=== PATIENT | male | born 1970 | race Caucasian/White ===

== ENCOUNTER 2024-07-19 15:40 | Inpatient (IN) ==
[2024-07-19 16:07] LABS: Basophils # (auto) 0.05 K/uL (0.00-0.20); Basophils % (auto) 0.7 %; Eosinophils # (auto) 0.13 K/uL (0.00-0.50); Eosinophils % (auto) 1.7 %; Hematocrit (blood only) 46.1 % (42.0-52.0); Hemoglobin 15.5 g/dl (14.0-18.0); Immature Granulocytes # (auto) 0.03 K/uL (0.01-0.20); Immature Granulocytes % (auto) 0.4 %; Lymphocytes # (auto) 1.51 K/uL (1.20-3.40); Lymphocytes % (auto) 20.2 %; Mean Corpuscular Hemoglobin 29.4 pg (25.0-34.0); Mean Corpuscular Hgb Conc 33.6 g/dL (32.0-36.0); Mean Corpuscular Volume 87.5 fL (80.0-100.0); Mean Platelet Volume 9.4 fL (9.4-12.4); Monocytes # (auto) 0.71 K/uL (0.11-0.59); Monocytes % (auto) 9.5 %; Neutrophils # (auto) 5.05 K/uL (1.40-6.50); Neutrophils % (auto) 67.5 %; Platelet Count 263 K/uL (130-400); RDW Coefficient of Variation 13.6 % (11.5-14.5); RDW Standard Deviation 42.9 fL (36.4-46.3); Red Blood Count 5.27 M/uL (4.70-6.10); White Blood Count 7.48 K/ul (4.8-10.8)
[2024-07-19] MEDS: dilTIAZem HCl 5 MG/ML 5 ML VIAL IV STA (16:07)
[2024-07-19 16:23] LABS: Albumin Globulin Ratio 1.5 (0.9-2); Albumin Level 4.5 gm/dl (3.4-5.0); BUN Creatinine Ratio 9.5 (10-20); Bilirubin,Total 0.8 mg/dl (0.2-1.0); Calcium 9.5 mg/dl (8.6-10.3); Creatinine Clr Calc Pharmacy 102.1 ml/min; Globulin 3.1 gm/dl (2.5-4.0); Potassium 4.2 mmol/L (3.5-5.1); Total Protein 7.6 gm/dl (6.0-8.3)
--- NOTE | 2024-07-19 16:33 | Emergency Department Note ---
Impression & Plan Atrial flutter by electrocardiogram ED Provider Note NAME: RANDEE BAEZ AGE: 53 SEX: M : 1970 ARRIVES VIA: Ambulance INFORMANT: Patient, ED PROVIDER(S): Vu Corona MD CHIEF COMPLAINT: Fluttering in chest HPI: This is a 53-year-old male presenting for fluttering in chest. Patient notes that over the past 5 days he has had intermittent symptoms of fluttering in his chest. He states he is only with exertion specifically walking around or doing activity. He notes that he did not feel his tachycardia at rest. No chest pain or shortness of breath. No fevers or chills. He does have exertional dyspnea however. No leg swelling. No pleurisy. ROS: See above HPI for pertinent positives & negatives. A total of 10 systems reviewed and were otherwise negative. PAST MEDICAL HISTORY: See Below PAST SURGICAL HISTORY: See Below FAMILY HISTORY: See Below SOCIAL HISTORY: See Below HOME MEDICATIONS: See Below ALLERGIES: See Below VITALS: See Below PHYSICAL EXAMINATION: General: resting comfortably in no acute distress Head: Normocephalic and atraumatic Eyes: Normal inspection, extraocular muscles intact Ear, nose, throat: Normal external exam Neck: Normal range of motion Respiratory: lungs clear to auscultation bilaterally Cardiovascular: Tachycardic regular rate/rhythm, no murmur GI: soft, nontender, no guarding or rebound Extremities: nontender, moves all extremities Neuro: The patient awake and alert, appropriately conversive, no focal deficits, symmetric faces Skin: Warm, dry, and intact MEDICAL DECISION MAKING: This is a 53-year-old male present for fluttering in chest. Patient is tachycardic to about 142 at this time. EKG as below shows atrial flutter. Patient does not know when this exactly started, thinks it is Wednesday morning. This is intermittent and he cannot feel his tachycardia at this time. -[id number] was 1 currently -Will try diltiazem 10 mg IV for rate control -Unsuccessful with IV push. Will do bolus - bloodwork is reviewed showing no significant leukocytosis, anemia, electrolyte or creatinine abnormality -Patient still in current atrial flutter. Will admit for further rate control, patient is symptomatic with exertion Differential diagnosis: Atrial fibrillation, atrial flutter, SVT Independent History obtained from: [facility] interpreted by me: ECG: ECG independently interpreted by me with atrial flutter, 2-1 AV conduction, rate of 142 normal QRS, normal QTc, no ST segment elevations consistent with STEMI criteria Cardiac Monitoring: An order was placed for continuous cardiac monitoring. The monitor shows a rate of 145 with atrial flutter rhythm. Critical Care Note: I have personally spent 35 minutes of critical care time in the direct management of this patient. This includes bedside care, interpretation of diagnostic studies, and testing, discussion with consultants, patient, and family members, and other required patient management activities. This 35 minutes is in excess of all separately billable procedures. Past Med/Surg History Problem List (Updated 07/19/24 @ 22:17 by Vu Corona MD) Atrial flutter by electrocardiogram (Acute) Morbid obesity Atrial flutter with rapid ventricular response ALFRED (generalized anxiety disorder) Hyperlipidemia Spinal stenosis of cervical region Hx of heart artery stent Encounter for pre-operative examination Colon cancer screening Abnormal CT of the abdomen Spondylosis PTSD (post-traumatic stress disorder) Polyneuropathy Anxiety Medical History (Updated 07/19/24 @ 22:17 by Vu Corona MD) Wears hearing aid in both ears Tinnitus of both ears Hypertension Vertigo carotid ultrasound scheduled 06/04/21 [facility] 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 Surgery should give 35% more lung capactiy, was a result of cancer dx 2020 to have surgery 01/05/[address] Evans pulmonary [place] in [place], [place] Sleep apnea cpap Surgical History (Updated 12/12/21 @ 09:06 by Emeka Mitchell MD) History of colonoscopy 06/11/21 [facility] History of arthroscopy R ankle H/O removal of testicle Right History of cardiac cath 2020, 2 [facility] [place] [place]; Social History Smoking Status: Never smoker Do You Dip or Chew Tobacco: No; Hx Alcohol Use: Yes Hx Substance Use: Yes Last Used Substance Other:: medical marijuana- drops as directed Preferred Language: Kiswahili Communication Ability: Effective Oiler Helper Required: No Beliefs That Will Affect Care: None Current Living Situation: Family Feels Safe at Home: Yes Assistive Devices: Hearing Aid - Bilateral Allergies Allergies Allergy/AdvReac Type Severity Reaction Status Date / Time No Known Allergies Allergy Verified 12/12/21 11:15 Home Meds Home Medications Medication Instructions Recorded Confirmed cetirizine 10 mg tablet (Zyrtec) 10 mg PO DAILY 06/04/21 07/19/24 aspirin 81 mg tablet,delayed 81 mg PO QAM 11/04/21 07/19/24 release (Adult Low Dose Aspirin) atorvastatin 20 mg tablet 20 mg PO DAILY 07/19/24 07/19/24 bupropion HCl 300 mg 24 hr tablet, 300 mg PO DAILY 07/19/24 07/19/24 extended release doxycycline hyclate 100 mg tablet 100 mg PO BID 07/19/24 07/19/24 fluoxetine 40 mg capsule 40 mg PO DAILY 07/19/24 07/19/24 gabapentin 300 mg capsule See Rx Instructions .Route .COMPLEX 07/19/24 07/19/24 hydrochlorothiazide 12.5 mg tablet 12.5 mg PO DAILY 07/19/24 07/19/24 lisinopril 20 mg tablet 20 mg PO DAILY 07/19/24 07/19/24 povidone-iodine 10 % topical 1 applic topical DAILY Wound care 07/19/24 07/19/24 solution Previous Rx's Medication Instructions Recorded pantoprazole 40 mg tablet,delayed 40 mg PO DAILY #30 tabs 12/12/21 release Results & Data (ED) Vital Signs Vital Signs - 24 hr 07/19/24 15:49 07/19/24 15:51 07/19/24 15:54 Temperature 36.7 C Temperature Source Oral Pulse Rate 150 H 142 H 142 H Pulse Rate from SpO2 Sensor 141 H Respiratory Rate 18 20 Blood Pressure 110/85 Blood Pressure Mean 93 Pulse Oximetry 98 98 Sepsis Recent Fever Within 48 Hours No Sepsis New/Unexplained Change in Mental Status No Sepsis Action Taken by Nursing No Action Required 07/19/24 16:24 07/19/24 16:28 07/19/24 16:30 Temperature Temperature Source Pulse Rate 143 H 144 H Pulse Rate from SpO2 Sensor 144 H 143 H Respiratory Rate 17 18 Blood Pressure 107/80 Blood Pressure Mean 93 Pulse Oximetry 93 97 Sepsis Recent Fever Within 48 Hours Sepsis New/Unexplained Change in Mental Status Sepsis Action Taken by Nursing 07/19/24 17:06 07/19/24 17:24 07/19/24 17:42 Temperature Temperature Source Pulse Rate 145 H 143 H 144 H Pulse Rate from SpO2 Sensor 145 H 144 H 145 H Respiratory Rate 18 32 H 20 Blood Pressure 102/83 Blood Pressure Mean 89 Pulse Oximetry 97 98 98 Sepsis Recent Fever Within 48 Hours Sepsis New/Unexplained Change in Mental Status Sepsis Action Taken by Nursing 07/19/24 17:48 07/19/24 18:00 07/19/24 18:09 Temperature Temperature Source Pulse Rate 143 H 145 H Pulse Rate from SpO2 Sensor 144 H 143 H Respiratory Rate 20 20 Blood Pressure 107/85 Blood Pressure Mean 92 Pulse Oximetry 100 100 Sepsis Recent Fever Within 48 Hours Sepsis New/Unexplained Change in Mental Status Sepsis Action Taken by Nursing 07/19/24 18:21 07/19/24 18:31 07/19/24 18:31 Temperature Temperature Source Pulse Rate 144 H Pulse Rate from SpO2 Sensor 144 H Respiratory Rate 18 Blood Pressure 121/84 121/84 Blood Pressure Mean 104 104 Pulse Oximetry 98 Sepsis Recent Fever Within 48 Hours Sepsis New/Unexplained Change in Mental Status Sepsis Action Taken by Nursing 07/19/24 18:39 07/19/24 18:41 Temperature Temperature Source Pulse Rate 140 H 141 H Pulse Rate from SpO2 Sensor 140 H Respiratory Rate 22 Blood Pressure Blood Pressure Mean Pulse Oximetry 97 Sepsis Recent Fever Within 48 Hours Sepsis New/Unexplained Change in Mental Status Sepsis Action Taken by Nursing Laboratory Data 07/19/24 15:51 07/19/24 15:51 Lab Results 07/19/24 Range/Units 15:51 WBC 7.48 (4.8-10.8) K/ul RBC 5.27 (4.70-6.10) M/uL Hgb 15.5 (14.0-18.0) g/dl Hct 46.1 (42.0-52.0) % MCV 87.5 (80.0-100.0) fL MCH 29.4 (25.0-34.0) pg MCHC 33.6 (32.0-36.0) g/dL RDW Std Deviation 42.9 (36.4-46.3) fL RDW Coeff of Carmenza 13.6 (11.5-14.5) % Plt Count 263 (130-400) K/uL MPV 9.4 (9.4-12.4) fL Immature Gran % (Auto) 0.4 % Neut % (Auto) 67.5 % Lymph % (Auto) 20.2 % [place] % (Auto) 9.5 % Eos % (Auto) 1.7 % Baso % (Auto) 0.7 % Neut # (Auto) 5.05 (1.40-6.50) K/uL Lymph # (Auto) 1.51 (1.20-3.40) K/uL [place] # (Auto) 0.71 H (0.11-0.59) K/uL Eos # (Auto) 0.13 (0.00-0.50) K/uL Baso # (Auto) 0.05 (0.00-0.20) K/uL Immature Gran # (Auto) 0.03 (0.01-0.20) K/uL Sodium 137 (136-145) mmol/L Potassium 4.2 (3.5-5.1) mmol/L Chloride 99 (98-107) mmol/L Carbon Dioxide 29 (21-32) mmol/L Anion Gap 9 (3-11) BUN 12 (6-23) mg/dl Creatinine 1.26 (0.6-1.4) mg/dl Est Cr Clr Drug Dosing 102.1 ml/min eGFR 69.05 BUN/Creatinine Ratio 9.5 L (10-20) Glucose 99 (70-99(Fasting)) mg/dl Calcium 9.5 (8.6-10.3) mg/dl Magnesium 2.0 (1.7-2.4) mg/dl Total Bilirubin 0.8 (0.2-1.0) mg/dl AST 24 (13-39) U/L ALT 27 (7-52) U/L Alkaline Phosphatase 83 (34-104) U/L Troponin I High Sens 3.4 (0-20) pg/ml Total Protein 7.6 (6.0-8.3) gm/dl Albumin 4.5 (3.4-5.0) gm/dl Globulin 3.1 (2.5-4.0) gm/dl Albumin/Globulin Ratio 1.5 (0.9-2) TSH 2.355 (0.300-4.500) uIu/ml Lyme Disease Screen Negative (Negative) Administered Medications Diltiazem HCl 125 mg/ Dextrose 125 mls @ 7.5 mls/hr IV .[id number] MERLINE; Protocol Stop: 08/18/24 16:29 Last Titration: 07/19/24 21:12 Dose: 0 mg/hr, 0 mls/hr Documented By: CHAN Co-signed By: LILIAN Titration: 07/19/24 17:25 Dose: 7.5 mg/hr, 7.5 mls/hr Documented By: LINH Co-signed By: CEF Admin: 07/19/24 16:47 Dose: 5 mg/hr, 5 mls/hr Documented By: KEAGAN Co-signed By: CEF Discontinued Medications Diltiazem HCl (Diltiazem Hcl 5 Mg/Ml 5 Ml Vial) 10 mg IV NOW STA Stop: 07/19/24 16:01 Last Admin: 07/19/24 16:07 Dose: 10 mg Documented By: KEAGAN Co-signed By: LILIAN Sodium Chloride (Nss) 500 mls @ 999 mls/hr IV .Q31M ONE Stop: 07/19/24 19:05 Last Infusion: 07/19/24 19:28 Dose: Infused Documented By: Admin: 07/19/24 18:43 Dose: 999 mls/hr Documented By: LINH Magnesium Sulfate/Dextrose (Magnesium Sulfate / D5w) 1 gm in 100 mls @ 100 mls/hr IV NOW STA Stop: 07/19/24 19:36 Last Infusion: 07/19/24 20:17 Dose: Infused Documented By: Admin: 07/19/24 19:16 Dose: 100 mls/hr Documented By: CHAN Metoprolol Tartrate (Metoprolol Tartrate 1 Mg/Ml Vial) Confirm Administered Dose 5 mg IV .STK-MED ONE Stop: 07/19/24 18:27 Last Admin: 07/19/24 18:41 Dose: Not Given Documented By: LINH Metoprolol Tartrate (Metoprolol Tartrate 1 Mg/Ml Vial) 5 mg IV NOW STA Stop: 07/19/24 18:36 Last Admin: 07/19/24 18:41 Dose: 5 mg Documented By: LINH Imaging Data Radiologist's Impression: Chest X-Ray 07/19/24 18:07 Clinical History: Heart palpitations Technique: A frontal view of the chest was obtained Findings: There is left lower lobe atelectasis. There is also linear atelectasis in the left midlung. The heart size is at the upper limit of normal. No right pleural effusion or pneumothorax is seen. There is a small to moderate sized left pleural effusion No fracture is noted. No foreign body is seen there is a stent in the upper SVC Impression: 1. Left lower lobe opacity, likely due to atelectasis 2. Left pleural effusion Electronically signed by Lobo Guardado 07-19-2024 6:29 PM Discharge Plan Visit Data Chief Complaint: Tachycardia Stated Complaint: Tachycardia/Aflutter HR 140s ED Provider: Vu Corona Discharge Problem: Atrial flutter by electrocardiogram Patient Disposition: Admitted As Inpatient Discharge Instructions Interventions: ED Discharge Assessment Last Done: 07/19/24 20:37
[2024-07-19 16:38] LABS: Thyroid Stimulating Hormone 2.355 uIu/ml (0.300-4.500)
[2024-07-19] MEDS: dilTIAZem HCL 125 MG in DEXTROSE 5% 100 ML IV SCH (16:47)
[2024-07-19] MEDS: METOPROLOL TARTRATE 1 MG/ML VIAL IV ONE (18:26)
--- NOTE | 2024-07-19 18:30 | XRay Report ---
Clinical History: Heart palpitations Technique: A frontal view of the chest was obtained Findings: There is left lower lobe atelectasis. There is also linear atelectasis in the left midlung. The heart size is at the upper limit of normal. No right pleural effusion or pneumothorax is seen. There is a small to moderate sized left pleural effusion No fracture is noted. No foreign body is seen there is a stent in the upper SVC Impression: 1. Left lower lobe opacity, likely due to atelectasis 2. Left pleural effusion Electronically signed by Lobo Guardado 07-19-2024 6:29 PM
[2024-07-19] MEDS: METOPROLOL TARTRATE 1 MG/ML VIAL IV STA (18:41)
[2024-07-19 18:43] LABS: Troponin I High Sensitivity 3.4 pg/ml (0-20)
[2024-07-19] MEDS: SODIUM CHLORIDE 0.9% 500 ML IV ONE (18:43)
--- NOTE | 2024-07-19 19:01 | History & Physical Report ---
Date of Service July 19, 2024 Assessment & Plan (1) Atrial flutter with rapid ventricular response: (2) Sleep apnea: (3) PTSD (post-traumatic stress disorder): (4) ALFRED (generalized anxiety disorder): (5) Hyperlipidemia: (6) Morbid obesity: (7) Hypertension: (8) Testicle cancer: Plan Patient 53-year-old gentleman presents emergency room with new onset atrial flutter with rapid ventricular response. Patient high risk for further arrhythmias and decompensation. He requires hospital level care, monitoring, specialty consultation and IV medications and laboratory monitoring. Admit to a monitored setting Patient given stat dose of IV Lopressor in the ED. Did seem to respond to this a little bit better than the diltiazem Continue diltiazem drip IV Lopressor and oral Lopressor to be started Patient does not appear volume overloaded, his blood pressure was a little bit on the soft side initially. Give a one-time 500 cc bolus of saline, this may also help with his rates if there is any volume depletion contributing to his atrial flutter Therapeutic dose Lovenox for anticoagulation in the setting of atrial flutter Echocardiogram Cardiology consultation for new onset atrial flutter and consider possible cardioversion N.p.o. after midnight Home medications as prescribed Home CPAP Give 1 g of mag sulfate may help with rate control and rhythm at bedside updated plan of care Discussed advanced directives, patient request full code History of Present Illness Chief Complaint: Racing heart shortness of breath and chest tightness Primary Care Provider: [facility] Patient is a 53-year-old gentleman with no previous history of arrhythmia. Patient does have previous history of heart disease. Presents to the emergency room with a 4 to 5-day history of some dyspnea with exertion and feeling as though his heart is racing. In the emergency room EKG is consistent with atrial flutter with rapid ventricular response. He was started on IV diltiazem and referred to our service for further evaluation. Time my evaluation patient is on diltiazem drip 7.5 mg/h. His heart rate is still 140. Patient is resting comfortably on the ER stretcher. His is at the bedside. He confirms that he noticed symptoms either Wednesday or Wednesday. He underwent a significant psychological traumatic event over the weekend and he thought it was a lot of stress and anxiety associated with that. Through the beginning of the week he noticed that he was really short of breath with any activity and his heart would race with any activity but seem to improve with rest. He thought maybe was extreme cold weather that was causing his symptoms. Finally came to the emergency room today when he just was not improving and at the urging of his . He denies any fever or chills, no cough or cold symptoms, some chest tightness but no real chest pain or pressure. No nausea or vomiting. No real changes in his bowel or bladder habits. Little bit decreased appetite but states he has been trying to stay hydrated. He does report he drinks may be 8 beers a day 4 to 5 days a week. May have been drinking little bit more since this event over the weekend. He has never had any issues with withdrawal. Recently he just stopped any beer intake for about a week without any symptoms. He states he only drinks light beer no alcohol. States his mom has atrial fibrillation/atrial flutter and has been cardioverted in the past. He personally has a history of metastatic testicular cancer that had been around his heart causing his previous heart issues. Never had any arrhythmias associated with treatment with his chemotherapy. He reports that due to his exposure in the he has approximately 60% lung function per pulmonary function testing and has chronically elevated diaphragm. He has not noticed any swelling in his hands arms legs or feet. Allergies Allergy/AdvReac Type Severity Reaction Status Date / Time No Known Allergies Allergy Verified 12/12/21 11:15 Home Medications Medication Instructions Recorded Confirmed Type cetirizine 10 mg tablet (Zyrtec) 10 mg PO DAILY 06/04/21 07/19/24 History aspirin 81 mg tablet,delayed 81 mg PO QAM 11/04/21 07/19/24 History release (Adult Low Dose Aspirin) pantoprazole 40 mg tablet,delayed 40 mg PO DAILY #30 tabs 12/12/21 07/19/24 Rx release atorvastatin 20 mg tablet 20 mg PO DAILY 07/19/24 07/19/24 History bupropion HCl 300 mg 24 hr tablet, 300 mg PO DAILY 07/19/24 07/19/24 History extended release doxycycline hyclate 100 mg tablet 100 mg PO BID 07/19/24 07/19/24 History fluoxetine 40 mg capsule 40 mg PO DAILY 07/19/24 07/19/24 History gabapentin 300 mg capsule See Rx Instructions .Route .COMPLEX 07/19/24 07/19/24 History hydrochlorothiazide 12.5 mg tablet 12.5 mg PO DAILY 07/19/24 07/19/24 History lisinopril 20 mg tablet 20 mg PO DAILY 07/19/24 07/19/24 History povidone-iodine 10 % topical 1 applic topical DAILY Wound care 07/19/24 07/19/24 History solution Past Med/Surg History Problem List (Updated 07/19/24 @ 18:58 by Juliano Trevino DO) Morbid obesity Atrial flutter with rapid ventricular response ALFRED (generalized anxiety disorder) Hyperlipidemia Spinal stenosis of cervical region Hx of heart artery stent Encounter for pre-operative examination Colon cancer screening Abnormal CT of the abdomen Spondylosis PTSD (post-traumatic stress disorder) Polyneuropathy Anxiety Medical History (Updated 07/19/24 @ 18:58 by Juliano Trevino DO) Wears hearing aid in both ears Tinnitus of both ears Hypertension Vertigo carotid ultrasound scheduled 06/04/21 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 Surgery should give 35% more lung capactiy, was a result of cancer dx 2020 to have surgery 01/05/[address] Evans pulmonary [place] in [place], [place] Sleep apnea cpap Surgical History (Updated 12/12/21 @ 09:06 by Emeka Mitchell MD) History of colonoscopy 06/11/21 [facility] History of arthroscopy R ankle H/O removal of testicle Right History of cardiac cath 2020, 2 [place] [place]; Social History Smoking Status: Never smoker Do You Dip or Chew Tobacco: No; Hx Alcohol Use: Yes Hx Substance Use: Yes Last Used Substance Other:: medical marijuana- drops as directed Preferred Language: Belarusian Communication Ability: Effective Heel Buffer Required: No Beliefs That Will Affect Care: None Current Living Situation: Family Feels Safe at Home: Yes Assistive Devices: Hearing Aid - Bilateral Review of Systems Review of Systems: Pertinent positive and negative review of systems as mentioned in the HPI Physical Exam Physical Exam: Constitutional: Alert, nontoxic, obese HEENT: Mucous membranes moist. Sclera clear Neck: Soft, no adenopathy Lungs: Decreased breath sounds, no wheezes, dull left base CV: S1-S2, regular, tachycardic, no murmur Abdomen: Soft, nontender, nondistended Extremities: No significant edema Musculoskeletal: No significant joint tenderness Neuro: No focal deficits Psych: Cooperative, normal mood Results & Data Results & Data Vital Signs (Past 12 Hours) Vital Signs Temp Pulse Resp BP Pulse Ox 07/19/24 18:41 141 H 07/19/24 18:31 121/84 07/19/24 18:21 144 H 18 98 07/19/24 18:09 145 H 20 100 07/19/24 18:00 107/85 07/19/24 17:48 143 H 20 100 07/19/24 17:42 144 H 20 98 07/19/24 17:24 143 H 32 H 98 07/19/24 17:06 145 H 18 102/83 97 07/19/24 16:30 144 H 18 97 07/19/24 16:28 107/80 07/19/24 16:24 143 H 17 93 07/19/24 15:54 142 H 20 98 07/19/24 15:51 142 H 07/19/24 15:49 36.7 C 150 H 18 110/85 98 Diagnostic Findings Reviewed imaging, laboratory and diagnostic studies. Pertinent findings as below. Personally reviewed EKG atrial flutter with RVR Personally reviewed chest x-ray: Cardiomegaly, questionable effusion left, no significant pulmonary edema or consolidation TSH 2.3 Electrolytes within normal range Creatinine 1.26 CBC within normal range Magnesium 2.0 Troponin 3.4 Code Status & VTE Plan VTE Prophylaxis Plan VTE Prophylaxis will be ordered: No Reason for no VTE drug order: Contraindicated
[2024-07-19] MEDS: MAGNESIUM SULFATE / D5W 1 GM/100 ML BAG IV STA (19:16)
[2024-07-19] MEDS ORDERED: ENOXAPARIN 1 MG/KG SC SCH (20:37)
[2024-07-19] MEDS ORDERED: ONDANSETRON INJ 2 MG/ML 2 ML VIAL IV PRN (20:37)
[2024-07-19] MEDS ORDERED: LORazepam 2 MG/1 ML VIAL IV PRN (20:37)
[2024-07-19] MEDS ORDERED: LORazepam 1 MG TAB PO PRN (20:37)
[2024-07-19] MEDS ORDERED: ALUMINUM/MAGNESIUM SUSP 30 ML UDC PO PRN (20:37)
[2024-07-19] MEDS ORDERED: ACETAMINOPHEN 325 MG TAB PO PRN (20:37)
[2024-07-19] MEDS ORDERED: POLYETHYLENE (MIRALAX) 17 GM PACK PO PRN (20:37)
[2024-07-19] MEDS: SODIUM CHLORIDE 0.9% 1,000 ML IV ONE (22:17)
[2024-07-19] MEDS: DIGOXIN 250 MCG in SYRINGE 9 ML IV STA (22:35)
[2024-07-19] MEDS: ENOXAPARIN 150 MG/ML SYR SQ SCH (22:40)
[2024-07-19] MEDS: FOLIC ACID 1 MG TAB PO SCH (22:43)
[2024-07-19] MEDS: METOPROLOL TARTRATE 25 MG TAB PO SCH (22:43)
[2024-07-19] MEDS: THIAMINE HCL 100 MG TAB PO SCH (22:43)
--- OUTSIDE RECORDS SUMMARY | 2024-07-19 23:06 | External Medical Summary | Summary of Care ---
Author Name Unknown Organization [facility] Address [address] [place] [address] Phone [phone] Care Team Providers Care Glory Hole Tender Name Role Phone Unavailable Primary Care Provider Unavailabl e Reason for Referral * Precert (Diagnostic Medical) (Within 10 days (routine)) - Pending Review Specialty Diagnoses / Procedures Referred By Contac t Referred To Contact Cardiac Studies Diagnoses Thoracic aortic ectasia (HCC) Procedures ECHO, COMPLETE (2D), TRANS-THORACIC Lisa Valles PA-C [address] [place] [address] Referral ID Status Reason Start Date Expiration Date Visits Requested Visits Authorized [id number] Pending Review Precert 04/21/2024 [id number] Reason for Visit * Precert (Within 30 days (routine)) - Authorized Specialty Diagnoses / Procedures Referred By Contac t Referred To Contact Cardiology Diagnoses Thoracic aortic ectasia (HCC) Procedures MD ECHO TTHRC R-T 2D W/WOM-MODE COMPL SPEC&COLR D Lisa Valles PA-C [address] [place] [address] Referral ID Status Reason Start Date Expiration Date V isits Requested Visits Authorized [id number] Authorized Precert 04/05/2024 05/28/2024 [id number] Encounter Details Date Type Department Care Team (Latest Contact Info) Description 04/21/2024 9:57 AM EDT - 04/21/2024 11:59 PM EDT Hospital Encounter Cardiac Studies, [facility] [address] [place] [address] Discharge Disposition: Home - Self Care Allergies No known active allergiesdocumented as of this encounter (statuses as of 04/22/2024) Medications Medication Sig Dispensed Refills Start Date End Date Status ibuprofen (MOTRIN) 600 MG Tablet TAKE 1 TAB BY MOUTH 3 TIMES A DAY. TAKE WITH FOOD 30 Tab 1 07/24/2016 Active FLUoxetine HCl (PROZAC) 40 MG CapsuleIndications:Desire re episode of recurrent major depressive disorder, without psychotic features (HCC) Take 40 mg by mouth daily. Active lisinopril (PRINIVIL) 10 MG TabletIndications:Essen tial hypertension TAKE 1 TABLET BY MOUTH EVERY DAY 30 Tab 11 08/06/2019 Active folic acid 1 MG Tablet Take 1 Tab by mouth daily. 30 Tab 5 02/07/2020 Active buPROPion extended release, SR, (WELLBUTRIN SR) 100 MG [id number]:Severe episode of recurrent major depressive disorder, without psychotic features (HCC) TAKE 1 TABLET BY MOUTH TWICE A DAY 60 Tab 5 03/16/2020 Active Gabapentin 300 MG Oral Capsule (NEURONTIN) Take 2 Caps by mouth 2 times a day. 120 Cap 2 06/17/2020 Active documented as of this encounter (statuses as of 04/22/2024) Active Problems Problem Noted Date Diagnosed Date PTSD (post-traumatic stress disorder) 03/25/2020 Major depression, recurrent 08/07/2019 RODERICK (obstructive sleep apnea) 07/10/2019 Severe obesity with body mas s index (BMI) of 35.0 to 39.9 with serious comorbidity 07/10/2019 Alcohol abuse 07/10/2019 History of testicular cancer 05/19/2017 Essential hypertension with goal blood pressure less than 140/90 06/14/2016 documented as of this encounter (statuses as of 04/22/2024) Resolved Problems Problem Noted Date Diagnosed Date Resolved Date Cancer of descended left testis 07/07/2018 07/07/2018 Chest wall pain 06/13/2016 05/19/2017 Testicular mass 03/20/2015 05/19/2017 Dermatitis 04/13/2005 05/19/2017 Allergic rhinitis 05/19/2017 documented as of this encounter (statuses as of 04/22/2024) Immunizations Name Administration Dates Next Due Diptheria/Tetanus (Adult) 05/12/2011 Seasonal Influenza Vac., MDV , IM, 0.5 mL (Fluzone) 06/30/2013,04/11/2012,08/26/2009 Seasonal Influenza, PF, 6 M & above, IM , (FluLaval or Fluzone) 07/10/2019,05/19/2017 documented as of this encounter Social History Tobacco Use Types Packs/Day Years Used Date Smoking Tobacco: Former Smokeless Tobacco: Former Chew Comments:tabacco use was rar e Alcohol Use Standard Drinks/Week Comments Yes 3 (1 standard drink = 0.6 oz pur e alcohol) 4-5 times weekly PHQ-2 Answer Date Recorded PHQ-2 Score 21 08/07/2019 Hunger Vital Sign Answer Date Recorded Worried About Running Out of Food in the Last Ye ar Never true 07/10/2019 Ran Out of Food in the Last Year Never true 07/10/2019 Utilities Answer Date Recorded Do you have trouble paying y our heating, water, or electric bill? (Adult - for ages 18 years and over) Not on file 12/14/2023 Is your family able to pay t he heat, water, or electric bill? (Household - for ages 0-17 years) Not on file 12/14/2023 Does your family have access to good internet? (Household - for ages 0-17 years) Not on file 12/14/2023 Social Connections Answer Date Recorded How often do you feel lonely or isolated from those around you? (Adult - for ages 18 years and over) Not on file 12/14/2023 Sex and Gender Information Value Date Recorded Sex Assigned at Not on file Gender Identity Not on file Sexual Orientation Not on file Job Start Date Occupation Industry Not on file Not on file Not on file documented as of this encounter Functional Status Functional Status Response Date of Assess ment Are you deaf or do you have serious difficulty h earing? No 06/13/2016 Are you blind or do you have serious difficulty seeing, even when wearing glasses? No 06/13/2016 Do you have serious difficul ty walking or climbing stairs? (5 years old or older) No 06/13/2016 Do you have difficulty dress ing or bathing? (5 years old or older) No 06/13/2016 Because of a physical, menta l, or emotional condition, do you have difficulty doing errands alone such as visiting a doctor s office or shopping? (15 years old or older) No 06/13/20 16 Cognitive Status Response Date of Assessm ent Because of a physical, menta l, or emotional condition, do you have serious difficulty concentrating, remembering, or making decisions? (5 years old or older) No 06/13/2016 documented as of this encounter Plan of Treatment Health Maintenance Due Date Last Done Comments Albumin/Creatinine Ratio 1990 Hepatitis B Vaccine (1 of 3 - 19+ 3-dose series) 10/29/1991 DTap/Tdap Vaccines (1 - Tdap) 05/13/2011 05/12/2011 Cologuard 2017 Colonoscopy 2017 Colorectal Cancer Screening 2017 Fecal Occult Blood Test 2017 Sigmoidoscopy 2017 GFR 07/10/2020 07/10/2019, 12/27, 06/14/2016, Additional history exists Depression Monitoring 08/07/2020 08/07/2019 Diabetes Screening 07/10/2022 07/10/2019, 0 07/10/2019, 01/20/2018, Additional history exists COVID-19 Vaccine ( season) 2024 07/15/2023 Influenza Vaccine (FLU shot) (#1) 2024 07/10/2019, 05/19/2017, 06/30/2013, Additional history exists Lipid Panel 07/10/2024 07/10/2019, 05/28, 09/16/2005 MENINGOCOCCAL (MENACTRA/MENVEO) Aged Out 08/17/2002 No longer eligible based on patient's age to complete this topic Zoster Vaccines Completed 07/15/2023, 01/14/2023 Pneumococcal Vaccine: Pediatrics (0 to 5 Years) and At-Risk Patients (6 to 64 Years) Completed 01/17/2024 HPV (Gardasil) Vaccine Aged Out No lo nger eligible based on patient's age to complete this topic documented as of this encounter Medical Devices Not on filedocumented as of this encounter Procedures Procedure Name Priority Date/Time Associated Diagnosis Comments ECHO, COMPLETE (2D), TRANS-THORACIC Routine 04/21/2024 11:07 AM EDT Thoracic aortic ectasia (HCC) documented in this encounter Results * ECHO, COMPLETE (2D), TRANS-THORACIC (04/21/2024 11:07 AM EDT) LEFT VENTRICULAR EJECTION FRACTION 65 % [facility] 04/21/2024 10:0 8 AM EDT Lisa Valles PA-C ECHOCARDIOLO GY [facility] documented in this encounter Visit Diagnoses Diagnosis Essential hypertension with goal blood pressure less than 140/90- Primary Thoracic aortic ectasia (HCC) Thoracic aortic ectasia documented in this encounter Administered Medications Inactive Administered Medications - up to 3 most recent administrations Medication Order MAR Action Action Date Dose Rate Site perflutren lipid microsphere inj SUSP 1.956 mg 1.956 mg, Intravenous, ONCE PRN Other, For Echo Only - Suboptimal Echo Images, Starting on Wed04/21/24 at 1046, Until Wed04/21/24 at 1245, For 2 hours, Administer IVP over 45 seconds, Cardiac Studies_HODHOV Given 04/21/2024 10:51 AM EDT 1.956 mg documented in this encounter Advance Directives * Full Code (Latest Code Status on File) Date Activated Date Inactivated Comments 06/13/2016 12:29 PM 06/14/2016 2:31 PM This orde r reflects the patients wishes and were consensually agreed upon. Question Answer Comments Discussion of Advance Directives occurred with: Patient Does the patient have a Living Will? No Does the patient have Health Care Power of Attor rambo? No
--- OUTSIDE RECORDS SUMMARY | 2024-07-19 23:06 | External Medical Summary | Summary of Care ---
Author Name Unknown Organization [facility] Address [address] [place] [address] Phone [phone] Care Team Providers Care Identity Access Management Architect Name Role Phone Unavailable Primary Care Provider Unavailabl e Reason for Referral * Precert (Diagnostic Medical) (Within 10 days (routine)) - Pending Review Specialty Diagnoses / Procedures Referred By Kathe t Referred To Contact Cardiac Studies Diagnoses Thoracic aortic ectasia (HCC) Procedures ECHO, COMPLETE (2D), TRANS-THORACIC Lisa Valles PA-C [address] [place] [address] Referral ID Status Reason Start Date Expiration Date Visits Requested Visits Authorized [id number] Pending Review Precert 04/21/2024 [id number] Encounter Details Date Type Department Care Team (Late st Contact Info) Description 04/07/2024 Orders Only Radiology, [facility] [address] [facility] [place] [address] Requisition, External Radiology [address] [place] [address] Thoracic aortic ectasia (HCC)* Allergies No known active allergiesdocumented as of this encounter (statuses as of 04/07/2024) Medications Medication Sig Dispensed Refills Start Date [...] extended release, SR, (WELLBUTRIN SR) 100 MG [id number]:Severe episode of recurrent major depressive disorder, without psychotic features (HCC) TAKE 1 TABLET BY MOUTH TWICE A DAY 60 Tab 5 03/16/2020 Active Gabapentin 300 MG Oral Capsule (NEURONTIN) Take 2 Caps by mouth 2 times a day. 120 Cap 2 06/17/2020 Active documented as of this encounter (statuses as of 04/07/2024) Active Problems Problem Noted Date Diagnosed Date PTSD (post-traumatic stress disorder) 03/25/2020 Major depression, recurrent 08/07/2019 RODERICK (obstructive sleep apnea) 07/10/2019 Severe obesity with body mas s index (BMI) of 35.0 to 39.9 with serious comorbidity 07/10/2019 Alcohol abuse 07/10/2019 History of testicular cancer 05/19/2017 Essential hypertension with goal blood pressure less than 140/90 06/14/2016 documented as of this encounter (statuses as of 04/07/2024) Resolved Problems Problem Noted Date Diagnosed Date Resolved Date Cancer of descended left testis 07/07/2018 07/07/2018 Chest wall pain 06/13/2016 05/19/2017 Testicular mass 03/20/2015 05/19/2017 Dermatitis 04/13/2005 05/19/2017 Allergic rhinitis 05/19/2017 documented as of this encounter (statuses as of 04/07/2024) Immunizations Name Administration Dates Next Due Diptheria/Tetanus [...] as of this encounter Plan of Treatment Upcoming Encounters Date Type Department Care Team (Late st Contact Info) Description 04/21/2024 10:00 AM EDT Appointment Cardiac Studies, [address] [place] [address] Scheduled Orders Name Type Priority Associated Diagnoses Orde r Schedule ECHO, COMPLETE (2D), TRANS-THORACIC Echocardiology Routine Thoracic aortic ectasia (HCC) Expected: 04/21/2024, Expires: 06/20/2024 Health Maintenance Due Date Last Done Comments Pneumococcal Vaccine: Pediatrics (0 to 5 Years) and At-Risk Patients (6 to 64 Years) (1 of 2 - PCV) 1978 Albumin/Creatinine Ratio 1990 DTap/Tdap Vaccines (1 - Tdap) 05/13/2011 05/12/2011 Cologuard 2017 Colonoscopy 2017 Colorectal Cancer Screening 2017 Fecal Occult Blood Test 2017 Sigmoidoscopy 2017 GFR 07/10/2020 07/10/2019, 12/27, 06/14/2016, Additional history exists Depression Monitoring 08/07/2020 08/07/2019 Diabetes Screening 07/10/2022 07/10/2019, 0 07/10/2019, 01/20/2018, Additional history exists Zoster Vaccines (1 of 2) 2022 COVID-19 Vaccine (1 - season) 2024 Influenza Vaccine (FLU shot) (#1) 2024 07/10/2019, 05/19/2017, 06/30/2013, Additional history exists Lipid Panel 07/10/2024 07/10/2019, 05/28, 09/16/2005 MENINGOCOCCAL (MENACTRA/MENVEO) Aged Out 08/17/2002 No longer eligible based on patient's age to complete this topic Hepatitis B Vaccine Completed 12/07/2004, 10/06/2003, 08/17/2002 HPV (Gardasil) Vaccine Aged Out No lo nger eligible based on patient's age to complete this topic documented as of this encounter Medical Devices Not on filedocumented as of this encounter Visit Diagnoses Diagnosis Thoracic aortic ectasia (HCC)- Primary Thoracic aortic ectasia documented in this encounter Advance Directives * [...]
[2024-07-19] MEDS: GABAPENTIN 300 MG CAP PO SCH (23:16)
[2024-07-20] MEDS: dilTIAZem HCl 5 MG/ML 5 ML VIAL IV STA (01:18)
[2024-07-20] MEDS: STAT IV Infusion **Titration per Protocol STA (02:02)
[2024-07-20] MEDS: DIGOXIN 250 MCG in SYRINGE 9 ML IV STA ×2 (03:32→23:15)
[2024-07-20] MEDS: ASPIRIN 81 MG ECTAB PO SCH (08:13)
[2024-07-20] MEDS: FLUoxetine HCL 20 MG CAP PO SCH (08:13)
[2024-07-20] MEDS: buPROPion XL 300 MG TABCR PO SCH (08:13)
[2024-07-20] MEDS: ATORVASTATIN 20 MG TAB PO SCH (08:13)
[2024-07-20] MEDS: MULTIVITAMIN TAB PO SCH (08:14)
[2024-07-20] MEDS: PANTOprazole 40 MG TAB PO SCH (08:14)
[2024-07-20 08:26] LABS: Hematocrit (blood only) 44.3 % (42.0-52.0); Hemoglobin 15.1 g/dl (14.0-18.0); Mean Corpuscular Hemoglobin 29.8 pg (25.0-34.0); Mean Corpuscular Hgb Conc 34.1 g/dL (32.0-36.0); Mean Corpuscular Volume 87.5 fL (80.0-100.0); Mean Platelet Volume 10.1 fL (9.4-12.4); Platelet Count 233 K/uL (130-400); RDW Coefficient of Variation 13.7 % (11.5-14.5); RDW Standard Deviation 43.5 fL (36.4-46.3); Red Blood Count 5.06 M/uL (4.70-6.10); White Blood Count 5.84 K/ul (4.8-10.8)
[2024-07-20 08:45] LABS: BUN Creatinine Ratio 13.8 (10-20); Calcium 9.2 mg/dl (8.6-10.3); Creatinine Clr Calc Pharmacy 111.8 ml/min; Magnesium 2.2 mg/dl (1.7-2.4); Potassium 4.4 mmol/L (3.5-5.1)
[2024-07-20] MEDS: GABAPENTIN 300 MG CAP PO SCH (11:16)
--- NOTE | 2024-07-20 12:04 | Cardiology Consultation ---
Date of Consultation July 20, 2024 Assessment & Plan (1) Atrial flutter with rapid ventricular response: (2) Hypertension: Plan Patient admitted with new onset atrial flutter, duration likely 4-5 days based on symptoms. Rates improved with IV metoprolol, IV digoxin and trial of diltiazem gtt. He became slightly hypotensive with dilt gtt so this was discontinued. Continue metoprolol tartrate for now for rate control. HS troponin unremarkable. Recommend anticoagulation with Eliquis 5 mg BID. He [facility] and Eliquis should be covered. we had a long discussion regarding treatment options of atrial flutter RVR. Recommend LESLEY/CV in attempts to restore NSR. He is in agreement. He is NPO and will see if this can be done today. His echo revealed preserved LVEF, no wall motion abnormalities. He does have dilated RV, likely due to RODERICK and history of mediastinal mass (metastatic testicular cancer). This [facility]. Continue Statin Lisinopril/hctz on hold due to borderline hypotension. Will likely need to resume on discharge. Possibly lower dose due to addition of beta debbie. Further recommendations pending evaluation with Dr. Winter. Case discussed with Dr. Winter I spent a total of 60 minutes on the date of service in preparation, delivery, and documentation of the care provided to this patient, excluding any time spent in the performance of separately billed services. Neha Cornejo PA-C Department of Cardiology, [facility] This chart was completed in part utilizing Speech Voice Recognition Software. Grammatical errors, random word insertions, pronoun errors, and incomplete sentences are an occasional consequence of this system due to software limitations, ambient noise, and hardware issues. Any formal questions or concerns about the content, text, or information contained within the body of this dictation should be directly addressed to the provider for clarification. Supervising Physician Co-Signing Physician Notes Patient was seen and personally examined. Full assessment and plan as outlined by advanced provider above. Care and management discussed and personally endorsed 53-year-old male presents with newly observed atrial flutter with variable ventricular response rate. Currently anticoagulated. Rate better controlled with oral metoprolol LV systolic function preserved Total duration at least 4 days by patient description Discussed management and recommended LESLEY guided cardioversion. No anesthesia available today Planned procedure 07 21 2024 7:15 AM Discussed in detail with patient I spent a total of 30 minutes on the date of service in preparation, delivery, and documentation of the care provided to this patient, excluding any time spent in the performance of separately billed services. History of Present Illness Reason for Consultation: Atrial flutter RVR Requesting Physician: [facility] Hospitalist Attending Physician: Dr. Winter History of Present Illness Patient is a 53 year old male who presented to [facility] from [facility] PCP at the [facility] for new onset atrial flutter. Onset was likely Wednesday night or Wednesday. Patient had a very stressful situation on Wednesday trying to help a fellow out of an attempted suicidal situation. Patient reports he has PTSD and fpc anxiety related to these issues. He admits to taking/using medical marijuana gummies on Wednesday night to help him relax. He also drank a few beers, which is his "normal". Wednesday morning patient work up and noted palpitations. Described as being "anxious". He was trying to go about his day and reported SOB with activities. He did not seek ER evaluation for these symptoms as he had a PCP appt in a few days. Upon arrival yesterday to his PCP, he was found to be tachycardic with atrial flutter and sent to ER for evaluation. Treated with IV metoprolol and started on dilt gtt which was held after he became hypotensive. Also treated with multiple doses of IV digoxin. Rates have improved from admission but remains in atrial flutter with variable AV block. At rest, he is asymptomatic. However with ambulation, he feels the palpitations and SOB as his HR trends upward. HS troponin was negative. Other labs unremarkable. Echo with preserved EF. Dilated RV, likely due to RODERICK and history of mediastinal mass (metastatic testicular cancer) s/p chemo. He is not hypoxic or SOB to suggest PE. History includes; 1. Testicular cancer with metastasis to his chest. Details uncertain, but he reports he was treated with chemo in 2020 and he is now in remission. During treatment he had to have 2 stents to his SVC due to compression from the mass in his chest. He reports [facility] and scans have showed the mass shrunk after treatment and has remained stable. 2. RODERICK 3. Hypertension 4. Dyslipidemia 5. Obesity Allergies Allergy/AdvReac Type Severity Reaction Status Date / Time No Known Allergies Allergy Verified 12/12/21 11:15 Home Medications Medication Instructions Recorded Confirmed Type cetirizine 10 mg tablet (Zyrtec) 10 mg PO DAILY 06/04/21 07/19/24 History aspirin 81 mg tablet,delayed 81 mg PO QAM 11/04/21 07/19/24 History release (Adult Low Dose Aspirin) pantoprazole 40 mg tablet,delayed 40 mg PO DAILY #30 tabs 12/12/21 07/19/24 Rx release atorvastatin 20 mg tablet 20 mg PO DAILY 07/19/24 07/19/24 History bupropion HCl 300 mg 24 hr tablet, 300 mg PO DAILY 07/19/24 07/19/24 History extended release doxycycline hyclate 100 mg tablet 100 mg PO BID 07/19/24 07/19/24 History fluoxetine 40 mg capsule 40 mg PO DAILY 07/19/24 07/19/24 History gabapentin 300 mg capsule See Rx Instructions .Route .COMPLEX 07/19/24 07/19/24 History hydrochlorothiazide 12.5 mg tablet 12.5 mg PO DAILY 07/19/24 07/19/24 History lisinopril 20 mg tablet 20 mg PO DAILY 07/19/24 07/19/24 History povidone-iodine 10 % topical 1 applic topical DAILY Wound care 07/19/24 07/19/24 History solution Patient History Medical History (Updated 07/19/24 @ 22:17 by Vu Corona MD) Wears hearing aid in both ears Tinnitus of both ears Hypertension Vertigo carotid ultrasound scheduled 06/04/21 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 Surgery should give 35% more lung capactiy, was a result of cancer dx 2020 to have surgery 01/05/[address] [facility] in [place], [place] Sleep apnea cpap Surgical History (Updated 07/20/24 @ 12:20 by Neha Cornejo PA-C) History of colonoscopy 06/11/21 [facility] History of arthroscopy R ankle H/O removal of testicle Right History of cardiac cath 2020, 2 [facility] [place], [place]; Social History Smoking Status: Former smoker Tobacco Type: Cigars Second Hand Exposure: No; Do You Dip or Chew Tobacco: No; Tobacco Cessation Education Requested by Patient: No Hx Alcohol Use: Yes Alcohol type: beer Hx Substance Use: Yes Last Used Substance: Days (ago) Last Used Substance Other:: medical marijuana- drops as directed Substance Use Type Other:: Medical Marijuana Preferred Language: Canadian Communication Ability: Effective Top Cleaner Required: No Beliefs That Will Affect Care: None Current Living Situation: Spouse Other Information That Helps Us Care for You: No Feels Safe at Home: Yes Safety Concerns: Feels Safe At This Time Assistive Devices: CPAP Review of Systems Review of Systems: All systems reviewed & are unremarkable except as noted in HPI & below Physical Exam Constitutional: WD/WN, vitals as above + obese; no acute distress Neck: + thick neck Respiratory: normal respiratory effort; no labored breathing Auscultation: lungs clear to auscultation bilaterally; no crackles, no rales and no wheezes Cardiovascular: Rate/Rhythm: + tachycardic and + irregularly irregular Heart Sounds: no murmur Vessels: no JVD Extremities: no edema Gastrointestinal (Abdomen): normal bowel sounds, soft, nontender, no hepatosplenomegaly Neurologic: PERRL, EOMI, accommodation nl, no face palsy, no dysarthria Results & Data Vital Signs (Past 12 Hours) Vital Signs Temp Pulse Pulse Resp BP Pulse Ox O2 Del Method 07/20/24 11:50 36.5 C 84 20 109/89 96 Room Air 07/20/24 07:44 36.9 C 94 H 18 94/78 L 98 Room Air 07/20/24 03:33 36.5 C 106 H 20 105/65 98 Room Air 07/20/24 03:32 106 H 07/20/24 01:15 134 H 110/71 Laboratory Results Cardiac Enzymes 07/19/24 Range/Units 15:51 AST 24 (13-39) U/L Troponin I High Sens 3.4 (0-20) pg/ml CBC 07/19/24 07/20/24 Range/Units 15:51 07:38 WBC 7.48 5.84 (4.8-10.8) K/ul RBC 5.27 5.06 (4.70-6.10) M/uL Hgb 15.5 15.1 (14.0-18.0) g/dl Hct 46.1 44.3 (42.0-52.0) % Plt Count 263 233 (130-400) K/uL Neut # (Auto) 5.05 (1.40-6.50) K/uL Lymph # (Auto) 1.51 (1.20-3.40) K/uL [place] # (Auto) 0.71 H (0.11-0.59) K/uL Eos # (Auto) 0.13 (0.00-0.50) K/uL Baso # (Auto) 0.05 (0.00-0.20) K/uL Comprehensive Metabolic Panel 07/19/24 07/20/24 Range/Units 15:51 07:38 Sodium 137 138 (136-145) mmol/L Potassium 4.2 4.4 (3.5-5.1) mmol/L Chloride 99 103 (98-107) mmol/L Carbon Dioxide 29 26 (21-32) mmol/L BUN 12 16 (6-23) mg/dl Creatinine 1.26 1.16 (0.6-1.4) mg/dl Glucose 99 99 (70-99(Fasting)) mg/dl Calcium 9.5 9.2 (8.6-10.3) mg/dl AST 24 (13-39) U/L ALT 27 (7-52) U/L Alkaline Phosphatase 83 (34-104) U/L Total Protein 7.6 (6.0-8.3) gm/dl Albumin 4.5 (3.4-5.0) gm/dl Intake and Output 07/19/24 07/20/24 07/20/24 22:59 06:59 14:59 Intake Total 631.542 / 061.354 8382 / 1000 Balance 631.542 / 810.814 2979 / 1000 Intake: IV 631.542 / 559.969 4702 / 1000 Magnesium Sulfate / D5w 1 gm In 100 / 100 100 ml @ 100 mls/hr IV NOW STA Rx#:[id number] Sodium Chloride 0.9% 1,000 ml @ 500 / 500 1000 / 1000 100 mls/hr IV .Q10H ONE Rx#: [id number] dilTIAZem HCL 125 mg In 31.542 / 31.542 Dextrose 5% 100 ml @ 5 MG/HR 5 mls/hr IV .Q24H [facility] Rx#: [id number] Other: Other Intake Source sips Weight 135.533 kg Weight Measurement Method Built in [facility] Diagnostic Findings Telemetry reviewed: atrial flutter with variable AV block ranging 90-110 at rest EKG reviewed from 07/19/24: atrial flutter with RVR in the 140's intraventricular conduction delay repeat EKG this morning on 07/20/24: Atrial flutter with variable AV block ST/T wave abnormality Echo results reviewed 07/20/24: LV is normal in size. Borderline concentric LVH. No regional wall motion abnormalities. Ejection fraction 50 to 55%. RV is moderately dilated. RV systolic function is mildly reduced. No significant valvular disease. Chest X-Ray 07/19/24 18:07 Clinical History: Heart palpitations Technique: A frontal view of the chest was obtained Findings: There is left lower lobe atelectasis. There is also linear atelectasis in the left midlung. The heart size is at the upper limit of normal. No right pleural effusion or pneumothorax is seen. There is a small to moderate sized left pleural effusion No fracture is noted. No foreign body is seen there is a stent in the upper SVC Impression: 1. Left lower lobe opacity, likely due to atelectasis 2. Left pleural effusion Electronically signed by Lobo Guardado 07-19-2024 6:29 PM
--- NOTE | 2024-07-20 13:53 | Electrocardiogram Report ---
Test Reason : Blood Pressure : */* mmHG Vent. Rate : 113 BPM Atrial Rate : 277 BPM P-R Int : * ms QRS Dur : 96 ms QT Int : 358 ms P-R-T Axes : 174 17 -21 degrees QTcB Int : 491 ms Atrial flutter with variable A-V block with premature ventricular or aberrantly conducted complexes possible Inferior infarct , age undetermined Abnormal ECG Confirmed by Emeka Aguilar ([id number]) on 07/20/2024 1:52:54 PM Referred By: [facility] Confirmed By: Emkea Aguilar
--- NOTE | 2024-07-20 13:55 | Electrocardiogram Report ---
Test Reason : Blood Pressure : */* mmHG Vent. Rate : 142 BPM Atrial Rate : 284 BPM P-R Int : * ms QRS Dur : 138 ms QT Int : 402 ms P-R-T Axes : * 25 30 degrees QTcB Int : 618 ms Atrial flutter with 2:1 A-V conduction Non-specific intra-ventricular conduction block Nonspecific T wave abnormality Abnormal ECG No previous ECGs available Confirmed by Emeka Aguilar ([id number]) on 07/20/2024 1:55:28 PM Referred By: Confirmed By: Emeka Aguilar
--- NOTE | 2024-07-20 16:12 | Hospitalist Progress Note ---
Date of Service July 20, 2024 Assessment & Plan (1) Atrial flutter with rapid ventricular response: (2) Asymptomatic right ventricular systolic dysfunction: (3) Sleep apnea: (4) PTSD (post-traumatic stress disorder): (5) ALFRED (generalized anxiety disorder): (6) Hyperlipidemia: (7) Morbid obesity: (8) Hypertension: (9) Testicle cancer: Plan Patient with difficult to control atrial flutter/fibrillation. Seems to be responding best to metoprolol and digoxin Communication with cardiology, continuing anticoagulation in anticipation for LESLEY cardioversion either today or tomorrow Continue Lovenox and then transition to Eliquis Continue other outpatient medications Admission and Anticipated Discharge Date Admission Date: July 19, 2024 Subjective Events of last night reviewed. Some hypotension with diltiazem. Given digoxin for better rate control. Patient denies chest pain. Physical Exam Physical Exam: Constitutional: Alert, nontoxic, obese HEENT: Mucous membranes moist. Lungs: Decreased breath sounds, prolonged expiratory phase, no significant wheezing CV: S1-S2, irregular, variable rate control Abdomen: Soft, nontender, nondistended Extremities: No significant edema Neuro: No focal deficits Psych: Cooperative, normal mood Results & Data Results & Data Vital Signs (Past 12 Hours) Vital Signs Temp Pulse Pulse Resp BP Pulse Ox O2 Del Method 07/20/24 13:44 104 H 07/20/24 11:50 36.5 C 84 20 109/89 96 Room Air 07/20/24 08:00 85 07/20/24 07:44 36.9 C 94 H 18 94/78 L 98 Room Air Diagnostic Findings Reviewed imaging, laboratory and diagnostic studies. Pertinent findings as below. CBC and BMP stable Echocardiogram shows normal ejection fraction of 50 to 55%, no wall motion abnormalities. Right ventricular function is mildly reduced with moderately dilated right ventricle. No valvular abnormalities.
[2024-07-20] MEDS: METOPROLOL TARTRATE 1 MG/ML VIAL IV PRN (22:26)
[2024-07-20] MEDS ORDERED: LORazepam 0.5 MG TAB PO PRN (22:46)
[2024-07-20] MEDS: LORazepam 2 MG/1 ML VIAL IV STA (23:13)
[2024-07-20] MEDS: SODIUM CHLORIDE 0.9% 1,000 ML IV ONE (23:19)
[2024-07-21] MEDS: dilTIAZem HCl 5 MG/ML 5 ML VIAL IV STA (00:14)
[2024-07-21] MEDS: DIGOXIN 250 MCG in SYRINGE 9 ML IV STA (00:43)
[2024-07-21] MEDS: METOPROLOL TARTRATE 1 MG/ML VIAL IV STA (01:19)
[2024-07-21] MEDS ORDERED: 0.2 MICRON FILTER SET 1 EACH IV STA (01:54)
[2024-07-21] MEDS ORDERED: AMIODARONE IV BOLUS & DRIP IV STA (01:54)
[2024-07-21] MEDS ORDERED: STAT IV Infusion **Titration per Protocol STA (01:54)
--- NOTE | 2024-07-21 01:55 | Communication Note ---
Date of Service: July 21, 2024
[2024-07-21] MEDS: AMIODARONE / D5W 150 MG/100 ML BAG IV STA (05:37)
[2024-07-21] MEDS: AMIODARONE / D5W 360 MG/200 ML BAG IV ONE (05:37)
--- NOTE | 2024-07-21 07:07 | Anesthesiology Consultation ---
Date of Service July 21, 2024 Assessment & Plan (1) Encounter for pre-operative examination: Chart Review Chart Review: Acceptable Risk for Surgery and Patient NOT seen in Pre Admission Testing Consults Requested none History Surgery Operation Date: 07/21/24 07:15 Proposed Procedures p Cardioversion w/Anesthesia Sedation - Ashish Winter MD s Transesophageal Echo w/Anesthesia - Ashish Winter MD Height/Weight Height: 6 ft 3 in Weight: 135 kg Allergies Allergy/AdvReac Type Severity Reaction Status Date / Time No Known Allergies Allergy Verified 12/12/21 11:15 Medications Home Medications Medication Instructions Recorded Confirmed Last Taken cetirizine 10 mg tablet (Zyrtec) 10 mg PO DAILY 06/04/21 07/19/24 12/12/21 08:00 aspirin 81 mg tablet,delayed 81 mg PO QAM 11/04/21 07/19/24 12/11/21 release (Adult Low Dose Aspirin) pantoprazole 40 mg tablet,delayed 40 mg PO DAILY #30 tabs 12/12/21 07/19/24 Unknown release atorvastatin 20 mg tablet 20 mg PO DAILY 07/19/24 07/19/24 Unknown bupropion HCl 300 mg 24 hr tablet, 300 mg PO DAILY 07/19/24 07/19/24 Unknown extended release doxycycline hyclate 100 mg tablet 100 mg PO BID 07/19/24 07/19/24 Unknown fluoxetine 40 mg capsule 40 mg PO DAILY 07/19/24 07/19/24 Unknown gabapentin 300 mg capsule See Rx Instructions .Route .COMPLEX 07/19/24 07/19/24 Unknown hydrochlorothiazide 12.5 mg tablet 12.5 mg PO DAILY 07/19/24 07/19/24 Unknown lisinopril 20 mg tablet 20 mg PO DAILY 07/19/24 07/19/24 Unknown povidone-iodine 10 % topical 1 applic topical DAILY Wound care 07/19/24 07/19/24 Unknown solution Active Medications Generic Name Dose Route Start Last Admin Trade Name Kal PRN Reason Stop Dose Admin Aspirin 81 mg 07/20/24 09:00 07/20/24 08:13 Aspirin 81 Mg Ectab PO 08/19/24 08:59 81 mg QAM MERLINE Administration Atorvastatin Calcium 20 mg 07/20/24 09:00 07/20/24 08:13 Atorvastatin 20 Mg Tab PO 08/19/24 08:59 20 mg DAILY MERLINE Administration Bupropion HCl 300 mg 07/20/24 09:00 07/20/24 08:13 Bupropion Xl 300 Mg Tabcr PO 08/19/24 08:59 300 mg DAILY MERLINE Administration Enoxaparin Sodium 135 mg 07/19/24 21:15 07/20/24 20:41 Enoxaparin 150 Mg/Ml Syr SQ 08/18/24 21:14 135 mg Q12 MERLINE Administration Fluoxetine HCl 40 mg 07/20/24 09:00 07/20/24 08:13 Fluoxetine Hcl 20 Mg Cap PO 08/19/24 08:59 40 mg DAILY MERLINE Administration Folic Acid 1 mg 07/19/24 21:15 07/20/24 08:13 Folic Acid 1 Mg Tab PO 08/18/24 21:14 1 mg QAM MERLINE Administration Gabapentin 300 mg 07/20/24 12:00 07/20/24 11:16 Gabapentin 300 Mg Cap PO 08/19/24 11:59 300 mg 1200 MERLINE Administration Gabapentin 900 mg 07/19/24 22:30 07/20/24 20:42 Gabapentin 300 Mg Cap PO 08/18/24 22:29 900 mg BID MERLINE Administration Diltiazem HCl 125 mg/ Dextrose 125 mls @ 0 mls/hr 07/19/24 16:30 07/19/24 21:12 IV 08/18/24 16:29 0 mg/hr .Q0M MERLINE 0 mls/hr Titration Protocol 0 MG/HR Sodium Chloride 1,000 mls @ 75 mls/hr 07/20/24 22:49 07/20/24 23:19 Nss IV 07/21/24 12:08 75 mls/hr .[id number] ONE Administration Metoprolol Tartrate 25 mg 07/19/24 21:15 07/21/24 03:06 Metoprolol Tartrate 25 Mg Tab PO 08/18/24 21:14 25 mg Q6H MERLINE Administration Metoprolol Tartrate 5 mg 07/19/24 20:37 07/21/24 04:32 Metoprolol Tartrate 1 Mg/Ml Vial IV 08/18/24 20:36 5 mg Q4 PRN Administration HR>110 Multivitamins 1 tab 07/20/24 09:00 07/20/24 08:14 Multivitamin Tab PO 08/19/24 08:59 1 tab QAM MERLINE Administration Pantoprazole Sodium 40 mg 07/20/24 09:00 07/20/24 08:14 Pantoprazole 40 Mg Tab PO 08/19/24 08:59 40 mg DAILY MERLINE Administration Thiamine HCl 100 mg 07/19/24 21:15 07/20/24 08:13 Thiamine Hcl 100 Mg Tab PO 08/18/24 21:14 100 mg QAM MERLINE Administration Past Medical History Medical History Wears hearing aid in both ears Tinnitus of both ears Hypertension Vertigo carotid ultrasound scheduled 06/04/21 [facility] 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 Surgery should give 35% more lung capactiy, was a result of cancer dx 2020 to have surgery 01/05/[address] [facility] [place] in [place], [place] Sleep apnea cpap Past Surgical History Surgical History History of colonoscopy 06/11/21 [facility] History of arthroscopy R ankle H/O removal of testicle Right History of cardiac cath 2020, 2 [facility] [place] in [place], [place]; Social History Smoking Status: Former smoker Do You Dip or Chew Tobacco: No Hx Alcohol Use: Yes Alcohol type: beer alcohol intake frequency: 3 or more drinks per day Alcohol Intake Frequency Comment: 8 Beers 4-5 days a week, never exhibited signs of alcohol withdraw Hx Substance Use: Yes substance use type: marijuana Substance Use Type Other:: Medical Marijuana Last Used Substance: Days (ago) Last Used Substance Other:: medical marijuana- drops as directed Physical Exam Vital Signs Last Vital Signs Temp 97.9 F 07/21/24 03:01 Pulse 166 H 07/21/24 04:32 Resp 20 07/21/24 03:01 BP 119/77 07/21/24 04:32 Pulse Ox 96 07/21/24 03:01 O2 Del Method CPAP 07/21/24 03:01 Testing Laboratory Results 07/20/24 07:38 07/20/24 07:38
--- NOTE | 2024-07-21 07:46 | Cardioversion ---
Date of Service July 21, 2024 Electrical Cardioversion Rpt Electrical Cardioversion Report Patient was seen and examined. Procedure, LESLEY guided synchronized electrical cardioversion explained in detatil, informed consent obtained. Formal TIMEOUT performed. Patient sedated per anesthesia consult with continuous HR, BP, O2 sat and endtidal CO2 monitoring. LESLEY performed. No contraindications to cardioversion Synchronized cardioversion performed using 200J biphasic shock with successful conversion to sinus bradycardia Patient aroused having tolerated well. EKG NSR at 60 bpm IRBBB
[2024-07-21] MEDS ORDERED: AMIODARONE / D5W 360 MG/200 ML BAG IV SCH (08:00)
--- NOTE | 2024-07-21 08:14 | Anesthesiology Progress Note ---
Date of Service July 21, 2024 Anesthesia Post Procedure Vital Signs Vital Signs: Temp Pulse Pulse Resp BP BP BP 07/21/24 08:01 66 20 124/88 07/21/24 07:57 66 18 124/88 07/21/24 07:50 62 19 128/83 07/21/24 07:43 98.1 F 78 18 120/68 07/21/24 07:40 59 L 14 97/67 L 07/21/24 07:36 56 L 14 92/58 L 07/21/24 07:29 127 H 14 124/90 07/21/24 07:25 121 H 16 139/72 07/21/24 07:08 98.4 F 96 H 20 139/72 07/21/24 04:47 89 107/76 07/21/24 04:32 166 H 119/77 07/21/24 03:01 97.9 F 99 H 20 119/77 07/21/24 01:19 76 120/78 07/21/24 00:43 135 H 07/20/24 23:15 135 H 07/20/24 22:41 153 H 115/77 07/20/24 22:23 97.9 F 112 H 20 118/83 07/20/24 21:51 74 07/20/24 19:45 98.2 F 90 22 108/79 07/20/24 16:21 98.2 F 95 H 18 104/80 07/20/24 13:44 104 H 07/20/24 11:50 97.7 F 84 20 109/89 Pulse Ox O2 Del Method O2 Flow Rate 07/21/24 08:01 97 Room Air 07/21/24 07:57 97 Room Air 07/21/24 07:50 97 Room Air 07/21/24 07:43 98 Room Air 07/21/24 07:40 98 Oxymask 6 07/21/24 07:36 98 Oxymask 6 07/21/24 07:29 100 Oxymask 6 07/21/24 07:25 95 Oxymask 6 07/21/24 07:08 99 Room Air 07/21/24 04:47 07/21/24 04:32 07/21/24 03:01 96 CPAP 07/21/24 01:19 07/21/24 00:43 07/20/24 23:15 07/20/24 22:41 07/20/24 22:23 97 Room Air 07/20/24 21:51 07/20/24 19:45 96 Room Air 07/20/24 16:21 97 Room Air 07/20/24 13:44 07/20/24 11:50 96 Room Air Transfer of Care Handoff Completed per policy Notes Mental Status: alert / awake / arousable and participated in evaluation Patient Amnestic to Procedure: Yes Nausea / Vomiting: adequately controlled Pain: adequately controlled Airway Patency, RR, SpO2: stable & adequate BP & HR: stable & adequate Hydration State: stable & adequate Anesthetic Complications: no major complications apparent and Pt Satisfied with anesthetic care
[2024-07-21 08:34] VITALS: TEMP 98.4
--- NOTE | 2024-07-21 09:28 | Cardiology Progress Note ---
Date of Service July 21, 2024 Assessment & Plan (1) Atrial flutter with rapid ventricular response: (2) Hypertension: Plan Patient admitted with new onset atrial flutter, duration likely 4-5 days based on symptoms. Rates improved with IV metoprolol, IV digoxin and trial of diltiazem gtt. He became slightly hypotensive with dilt gtt so this was discontinued. Continue metoprolol tartrate for now for rate control. HS troponin unremarkable. Recommend anticoagulation with Eliquis 5 mg BID. He has insurance coverage through [facility] and Eliquis should be covered. we had a long discussion regarding treatment options of atrial flutter RVR. Recommend LESLEY/CV in attempts to restore NSR. He is in agreement. He is NPO and will see if this can be done today. His echo revealed preserved LVEF, no wall motion abnormalities. He does have dilated RV, likely due to RODERICK and history of mediastinal mass (metastatic testicular cancer). This is followed closely by the [facility]. Continue Statin Lisinopril/hctz on hold due to borderline hypotension. Will likely need to resume on discharge. Possibly lower dose due to addition of beta debbie. Further recommendations pending evaluation with Dr. Winter. Case discussed with Dr. Winter I spent a total of 60 minutes on the date of service in preparation, delivery, and documentation of the care provided to this patient, excluding any time spent in the performance of separately billed services. Neha Cornejo PA-C Department of Cardiology, [facility] This chart was completed in part utilizing Speech Voice Recognition Software. Grammatical errors, random word insertions, pronoun errors, and incomplete sentences are an occasional consequence of this system due to software limitations, ambient noise, and hardware issues. Any formal questions or concerns about the content, text, or information contained within the body of this dictation should be directly addressed to the provider for clarification. 07/21/2024 Paroxysmal atrial flutter status post successful synchronized electrical cardioversion. Discussed results in detail with patient. Good response to current intervention. Discussed close clinical follow-up and prompt assessment if with recurrence of tachyarrhythmias. Additional treatments including antiarrhythmic therapy and atrial flutter ablation discussed. Atrial flutter typical and likely amenable to ablation if becomes persistent. Intervention however may be limited by prior SVC/IVC stenting Recommendations: Continue metoprolol as metoprolol succinate 25 mg twice per day Change Lovenox subcu to apixaban 5 mg twice per day begin this evening resume prehospital medications Follow-up with cardiology Dominic/Dr Kern 3 to 4 weeks Admission and Anticipated Discharge Date Admission Date: July 19, 2024 Subjective Patient seen and examined both preprocedure and post procedure. Underwent synchronized electrical cardioversion after transesophageal echocardiogram clearance earlier this morning. Successful conversion to sinus rhythm. Patient feels improved denies any difficulties with chest pain or shortness of breath. Heart rate in the 60s Review of Systems Review of Systems: All systems reviewed & are unremarkable except as noted in Subjective Physical Exam Constitutional: WD/WN, vitals as above + obese; no acute distress Neck: + thick neck Respiratory: normal respiratory effort; no labored breathing Auscultation: lungs clear to auscultation bilaterally; no crackles, no rales and no wheezes Cardiovascular: Rate/Rhythm: + tachycardic and + irregularly irregular Heart Sounds: no murmur Vessels: no JVD Extremities: no edema Gastrointestinal (Abdomen): normal bowel sounds, soft, nontender, no hepatosplenomegaly Neurologic: PERRL, EOMI, accommodation nl, no face palsy, no dysarthria Results & Data Vital Signs (Past 12 Hours) Vital Signs Temp Pulse Pulse Resp BP BP BP 07/21/24 08:33 36.9 C 63 16 121/78 07/21/24 08:01 66 20 124/88 07/21/24 07:57 66 18 124/88 07/21/24 07:50 62 19 128/83 07/21/24 07:43 36.7 C 78 18 120/68 07/21/24 07:40 59 L 14 97/67 L 07/21/24 07:36 56 L 14 92/58 L 07/21/24 07:29 127 H 14 124/90 07/21/24 07:25 121 H 16 139/72 07/21/24 07:08 36.9 C 96 H 20 139/72 07/21/24 04:47 89 107/76 07/21/24 04:32 166 H 119/77 07/21/24 03:01 36.6 C 99 H 20 119/77 07/21/24 01:19 76 120/78 07/21/24 00:43 135 H 07/20/24 23:15 135 H 07/20/24 22:41 153 H 115/77 07/20/24 22:23 36.6 C 112 H 20 118/83 07/20/24 21:51 74 Pulse Ox O2 Del Method O2 Flow Rate 07/21/24 08:33 98 Room Air 07/21/24 08:01 97 Room Air 07/21/24 07:57 97 Room Air 07/21/24 07:50 97 Room Air 07/21/24 07:43 98 Room Air 07/21/24 07:40 98 Oxymask 6 07/21/24 07:36 98 Oxymask 6 07/21/24 07:29 100 Oxymask 6 07/21/24 07:25 95 Oxymask 6 07/21/24 07:08 99 Room Air 07/21/24 04:47 07/21/24 04:32 07/21/24 03:01 96 CPAP 07/21/24 01:19 07/21/24 00:43 07/20/24 23:15 07/20/24 22:41 07/20/24 22:23 97 Room Air 07/20/24 21:51
[2024-07-21] MEDS: BENZOCAINE/TETRACAIN/BUTAM 50 APPLN/5 GM CAN EXT ONE (09:41)
[2024-07-21 09:51] VITALS: PULSE 69; RESP 14; O2SAT 96
--- NOTE | 2024-07-21 10:58 | Discharge Summary ---
Discharge Summary Date of Service July 21, 2024 Principal Dx & Hospital Course #1 = Principal Diagnosis (1) Atrial flutter with rapid ventricular response: (2) Asymptomatic right ventricular systolic dysfunction: (3) Sleep apnea: (4) PTSD (post-traumatic stress disorder): (5) ALFRED (generalized anxiety disorder): (6) Hyperlipidemia: (7) Morbid obesity: (8) Hypertension: (9) Testicle cancer: Plan Patient 53-year-old gentleman presented to the emergency room with increasing shortness of breath and palpitations. He was noted to be in atrial fibrillation with rapid ventricular response. Patient was admitted to a monitored setting. Initially started on diltiazem drip however did not get much rate control. He was started on oral metoprolol as well as IV metoprolol. Still was having difficulty overnight with rate control and was eventually loaded with digoxin. Cardiology consultation was obtained. His rates were better controlled with metoprolol and digoxin. He was started on Lovenox full dose for anticoag ulation. Echocardiogram was performed showed normal ejection fraction but some right ventricular dysfunction. He was prepped for cardioversion. On the day of discharge patient underwent LESLEY cardioversion. He converted to sinus rhythm and was maintained in sinus rhythm with metoprolol. He was transition to Eliquis for anticoagulation. His blood pressure was stable. Other electrolytes and lab oratory studies were stable. He will continue on Toprol XL and Eliquis. To be discharged home to follow-up with his PCP and with cardiology in outpatient in 2 to 3 weeks. Notes For Next Care Provider Continue to follow-up with cardiology May need to reintroduce his lisinopril and hydrochlorothiazide for blood pressure control if his blood pressure start to trend upward once he is home. Medication Changes From Visit Lisinopril/hydrochlorothiazide discontinued Metoprolol XL and Eliquis are new Admission HPI Per Admitting Provider Patient is a 53-year-old gentleman with no previous history of arrhythmia. Patient does have previous history of heart disease. Presents to the emergency room with a 4 to 5-day history of some dyspnea with exertion and feeling as though his heart is racing. In the emergency room EKG is consistent with atrial flutter with rapid ventricular response. He was started on IV diltiazem and referred to our service for further evaluation. Time my evaluation patient is on diltiazem drip 7.5 mg/h. His heart rate is still 140. Patient is resting comfortably on the ER stretcher. His is at the bedside. He confirms that he noticed symptoms either Wednesday or Wednesday. He underwent a significant psychological traumatic event over the weekend and he thought it was a lot of stress and anxiety associated with that. Through the beginning of the week he noticed that he was really short of breath with any activity and his heart would race with any activity but seem to improve with rest. He thought maybe was extreme cold weather that was causing his symptoms. Finally came to the emergency room today when he just was not improving and at the urging of his . He denies any fever or chills, no cough or cold symptoms, some chest tightness but no real chest pain or pressure. No nausea or vomiting. No real changes in his bowel or bladder habits. Little bit decreased appetite but states he has been trying to stay hydrated. He does report he drinks may be 8 beers a day 4 to 5 days a week. May have been drinking little bit more since this event over the weekend. He has never had any issues with withdrawal. Recently he just stopped any beer intake for about a week without any symptoms. He states he only drinks light beer no alcohol. States his mom has atrial fibrillation/atrial flutter and has been cardioverted in the past. He personally has a history of metastatic testicular cancer that had been around his heart causing his previous heart issues. Never had any arrhythmias associated with treatment with his chemotherapy. He reports that due to his ex posure in the he has approximately 60% lung function per pulmonary function testing and has chronically elevated diaphragm. He has not noticed any swelling in his hands arms legs or feet. Admission Exam Per Admitting Provider See H&P Discharge Exam Constitutional: Alert, obese, no distress HEENT: Mucous membranes moist. Lungs: Clear to auscultation, decreased, no wheezes rales or rhonchi CV: S1-S2, regular Abdomen: Soft, nontender, nondistended Extremities: No significant edema Neuro: No focal deficits Psych: Cooperative, normal mood Updated Medication List Medication Instructions Recorded Confirmed Type cetirizine 10 mg tablet (Zyrtec) 10 mg PO DAILY 06/04/21 07/19/24 History aspirin 81 mg tablet,delayed 81 mg PO QAM 11/04/21 07/19/24 History release (Adult Low Dose Aspirin) pantoprazole 40 mg tablet,delayed 40 mg PO DAILY #30 tabs 12/12/21 07/19/24 Rx release atorvastatin 20 mg tablet 20 mg PO DAILY 07/19/24 07/19/24 History bupropion HCl 300 mg 24 hr tablet, 300 mg PO DAILY 07/19/24 07/19/24 History extended release doxycycline hyclate 100 mg tablet 100 mg PO BID 07/19/24 07/19/24 History fluoxetine 40 mg capsule 40 mg PO DAILY 07/19/24 07/19/24 History gabapentin 300 mg capsule See Rx Instructions .Route .COMPLEX 07/19/24 07/19/24 History hydrochlorothiazide 12.5 mg tablet 12.5 mg PO DAILY 07/19/24 07/19/24 History lisinopril 20 mg tablet 20 mg PO DAILY 07/19/24 07/19/24 History povidone-iodine 10 % topical 1 applic topical DAILY Wound care 07/19/24 07/19/24 History solution apixaban 5 mg tablet (Eliquis) 5 mg PO BID #60 tabs 07/21/24 Rx metoprolol succinate 25 mg 25 mg PO BID #60 tabs 07/21/24 Rx tablet,extended release 24 hr Hospital Stay Data Consultations 07/19/24 18:13 ED Decision to Admit Stat 07/19/24 20:37 Consult Cardiology Routine 07/20/24 14:45 Consult Anesthesiology Routine Procedures Performed Operation Date: 07/21/24 07:15 Actual Procedures p Echo Transesophageal - Ashish Winter MD s Echo Color Flow - Ashish Winter MD s Echo Doppler Complete - Ashish Winter MD s Cardioversion - Ashish Winter MD Diagnostic Imagining Performed Reviewed imaging, laboratory and diagnostic studies. Pertinent findings as below. CBC within normal range Electrolytes all within normal range Creatinine 1.16 TSH 2.3 Troponins negative Lyme screen negative Echocardiogram/LESLEY showed ejection fraction 50 to 55%. Borderline reduced right ventricular function. No significant valvular disease. No evidence of thrombus in the left atrial appendage. Some borderline left ventricular hypertrophy. Pending Results Patient Have Any Pending Studies at Discharge: No Discharge Instructions Given to Patient (Per Discharging Provider) For now your lisinopril/hydrochlorothiazide will be on hold, and may need to be restarted at some point for blood pressure control. Your PCP or heel attacher wood can reintroduce Metoprolol and Eliquis are new medications for you Strongly recommend you significantly decrease your beer intake Total Time Total Time Spent Total Time Spent (In Minutes): 35
--- NOTE | 2024-07-21 11:34 | Electrocardiogram Report ---
Test Reason : Blood Pressure : */* mmHG Vent. Rate : 60 BPM Atrial Rate : 60 BPM P-R Int : 128 ms QRS Dur : 98 ms QT Int : 408 ms P-R-T Axes : 59 20 1 degrees QTcB Int : 408 ms Normal sinus rhythm Left atrial enlargement Abnormal ECG When compared with ECG of 20-Jul-2024 08:39, Sinus rhythm has replaced Atrial flutter Vent. rate has decreased by [address] no longer elevated in Inferior leads T wave inversion no longer evident in Lateral leads Confirmed by Emeka Aguilar ([id number]) on 07/21/2024 11:33:53 AM Referred By: [facility] Confirmed By: Emeka Aguilar
[2024-07-21 12:07] LABS: BUN Creatinine Ratio 16.7 (10-20); Calcium 9.3 mg/dl (8.6-10.3); Creatinine Clr Calc Pharmacy 113.5 ml/min; Potassium 4.8 mmol/L (3.5-5.1)
[2024-07-21 12:08] VITALS: BP 121/78
[2024-07-21] MEDS ORDERED: METOPROLOL SUCC 25MG EXT REL TAB PO SCH (21:00)
[2024-07-21] MEDS ORDERED: APIXABAN 5 MG TABLET PO SCH (21:00)
== END 2024-07-21 13:21 | disposition home or self-care (01) | DRG 310 ==
LOC: ED 15:40 → EDINP 18:51 → 2E 21:57